=== PATIENT | male | born 1990 | race Caucasian/White ===

== ENCOUNTER 2016-10-10 19:14 | Emergency (ER) | payer MEDICAID ==
[~2016-10-10] VITALS: Ht 175.3 cm; Wt 69.1 kg
[~2016-10-10 19:14] MED LIST: FLOVENT0.044 MG/A IH; NAPROXEN500 MG PO; NO HOME MEDICATIONS; TRAZADONE HYDR100 MG PO; ULTRAM 50MG TAB50 MG PO; ZOLOFT
[2016-10-10 19:20] VITALS: BP 134/85; TEMP 97.1
[2016-10-10 20:33] LABS: BASO % 0.5 % (0.0-2.0); EOS # 0.2 (0.0-0.7); EOS % 2.5 % (0-4.0); GRAN # 3.9 (1.4-6.5); GRAN % 60.9 % (42.2-75.2); HEMATOCRIT 39.2 % (42.0-52.0); HEMOGLOBIN 13.4 g/dl (13.5-18.0); LYMPH # 1.6 (1.2-3.4); LYMPH % 24.8 % (20.0-51.0); MEAN CELL VOLUME 90 fl (80.0-100.0); MEAN CORPUSCULAR HEMOGLOBIN 31 pg (27.0-31.0); MEAN CORPUSCULAR HGB CONC 34 g/dl (33.0-37.0); MEAN PLATELET VOLUME 10.1 fl (7.4-10.4); MONO # 0.7 (0.1-0.6); MONO % 11.1 % (1.7-9.3); PLATELET COUNT 222 K/mm3 (130-400); RED BLOOD COUNT 4.35 M/mm3 (4.20-5.60); REDCELL DISTRIBUTION WIDTH-CV 11.9 % (11.5-14.5); WHITE BLOOD COUNT 6.3 K/mm3 (4.8-10.8)
[2016-10-10 20:46] LABS: ADJUSTED CALCIUM 8.7 mg/dL (8.4-10.2); ALBUMIN 4.2 gm/dL (3.5-5.0); BILIRUBIN,TOTAL 0.5 mg/dL (0.0-1.0); CALCIUM 8.9 mg/dL (8.4-10.2); CREATININE, serum 0.96 mg/dL (0.66-1.25); POTASSIUM 3.7 mmol/L (3.4-5.0); TOTAL PROTEIN 6.9 gm/dL (6.4-8.2)
[2016-10-10 22:51] VITALS: PULSE 86
== END 2016-10-10 22:52 | disposition home or self-care (01) ==
LOC: COL.ER 19:14
PROVIDERS: Physician Assistant Medical
DX: R60.9 Edema, unspecified (principal); M79.662 Pain in left lower leg; F90.9 Attention-deficit hyperactivity disorder, unspecified type; F95.2 Tourette's disorder; F32.9 Major depressive disorder, single episode, unspecified; F42.9 Obsessive-compulsive disorder, unspecified; K21.9 Gastro-esophageal reflux disease without esophagitis; J45.909 Unspecified asthma, uncomplicated; Z87.39 Personal history of other diseases of the musculoskeletal system and connective tissue

== ENCOUNTER 2016-10-14 13:05 | Emergency (ER) | payer MEDICAID ==
[~2016-10-14] VITALS: Ht 175.3 cm; Wt 80.0 kg
[2016-10-14 13:09] VITALS: BP 127/79; PULSE 70; TEMP 97.8
[2016-10-14] MEDS ORDERED: ATIVAN 1MG T1 MG/TAB PO (14:13)
== END 2016-10-14 15:15 | disposition home or self-care (01) ==
LOC: COL.ER 13:05
DX: R07.89 Other chest pain (principal); F41.9 Anxiety disorder, unspecified; F32.9 Major depressive disorder, single episode, unspecified; F43.10 Post-traumatic stress disorder, unspecified

== ENCOUNTER → 2017-07-24 | Outpatient (REF) ==
[~2017-07-24] MED LIST changes: +ATIVAN 1MG T1 MG/TAB PO
== END ==
LOC: ZLAB.WCH 18:09
DX: Z01.89 Encounter for other specified special examinations (principal)